=== PATIENT | female | born 1970 ===

== ENCOUNTER 2022-05-21 16:42 | Outpatient (REF) | payer MEDICAID, SELFPAY ==
--- NOTE | 2022-05-21 16:00 | PAPFT_PTH ---
PATIENT: Mckenzie Guzman LOC: [facility]#:[id number] AGE/SX: 51/F ROOM: RE05/21/[address]: Francisca Covarrubias : 1970 BED: DIS: 05/21/2022 SPEC #: [id number] RECD: 05/22/22 12:55 STATUS: BETTINA REQ #: [id number] BISI: 05/21/22 16:[address]: Francisca Covarrubias DEPT: [facility] Cytology RECD BY: Lidia Ferguson Tissues: 1 - CX/ENDOCX FOR PAP SMEARS Procedures: PAP THIN PREP/[facility] Screening HPV DNA PROBE Comments: [id number] (CHLAMYDIA/GC)
[2022-05-23 14:43] LABS: Chlamydia Result Negative (Negative); GC Result Negative (Negative)
== END 2022-05-21 16:43 | disposition home or self-care (01) ==
LOC: NCHCN 16:42
PROVIDERS: Visit Provider Family Medicine
DX: S01.83XA Puncture wound without foreign body of other part of head, initial encounter (principal); X58.XXXA Exposure to other specified factors, initial encounter; Z12.4 Encounter for screening for malignant neoplasm of cervix; Z11.51 Encounter for screening for human papillomavirus (HPV)
CPT/HCPCS: 87077; 87491; 87591; 88142; 87070; 87186; 87205; 87624